=== PATIENT | male | born 2000 | race Two or more races ===

== ENCOUNTER 2021-03-28 21:36 | Emergency (ER) | payer OTHER ==
[~2021-03-28] VITALS: Ht 175.3 cm; Wt 127.0 kg
[2021-03-28 23:07] LABS: Basophils # (auto) 0 10 ^3/uL (0-0.2); Basophils % (auto) 0.4 % (0.0-2.0); Eosinophils # (auto) 0.1 10 ^3/uL (0-0.8); Eosinophils % (auto) 0.8 % (0.0-7.0); Hematocrit 46.9 % (41.0-53.0); Hemoglobin 15.7 g/dL (13.5-17.5); Lymphocytes # (auto) 1.8 10 ^3/uL (0.4-5.4); Lymphocytes % (auto) 17.8 % (10.0-50.0); Mean Corpuscular Hemoglobin 28.7 pg (28.0-32.0); Mean Corpuscular Hgb Conc. 33.5 g/dL (32.0-36.0); Mean Corpuscular Volume 85.4 fL (80.0-100.0); Monocytes # (auto) 0.8 10 ^3/uL (0-1.3); Monocytes % (auto) 7.5 % (0.0-12.0); Neutrophils # (auto) 7.4 10 ^3/uL (1.6-8.6); Neutrophils % (auto) 73.5 % (37.0-80.0); Nucleated Red Blood Cells % 0.1 %; Red Blood Cells 5.49 10^6/uL (4.5-5.90); Red Cell Distribution Width 13.2 % (11.8-14.3); White Blood Cell 10.1 10^3/uL (4.4-10.8)
[2021-03-28 23:26] LABS: Albumin 4.2 g/dL (3.4-5.0); Magnesium 2.9 mg/dL (1.6-2.6); Potassium 3.9 mmol/L (3.5-5.1)
[2021-03-28 23:32] LABS: BUN/Creatinine Ratio 14.4; Bilirubin, Total 0.4 mg/dL (0.2-1.0); Total Protein 8.5 g/dL (6.4-8.2)
[2021-03-29 02:15] VITALS: BP 137/81
== END 2021-03-29 02:40 | disposition home or self-care (01) ==
LOC: ER 21:40
DX: R55 Syncope and collapse (principal); R07.89 Other chest pain
CPT/HCPCS: 36415; 70450; 71046; 80053; 83735; 84484; 85025; 93005